=== PATIENT | male | born 1980 | race Caucasian/White ===

== ENCOUNTER 2023-12-17 09:30 | Emergency (ER) | payer OTHER ==
[2023-12-17] MEDS ORDERED: LORazepam 2 MG/ML INJ IV PRN ×2 (09:48)
--- NOTE | 2023-12-17 09:53 | ED ---
Alcohol HPI - General Chief Complaint: Alcohol Stated Complaint: Withdrawal Time Seen by Provider: 12/17/23 09:32 Source: patient, EMS Mode of arrival: EMS Limitations: no limitations - History of Present Illness Initial Comments: This patient is a 43-year-old man sent here from [facility] to have evaluation for possible jaundice. The patient states he is there to stop drinking. He was drinking approximately 1/5 of alcohol per day. His last drink was on morning. He states that he does feel a little bit shaky. He denies any trauma. No pain. Currently no nausea or vomiting. Patient has had seizures previously MD Complaint: medical clearance for detox facility Time Since Last Drink: 48 -: hour(s) Previous Visits for Alcohol Intoxication?: No Recent Trauma: No Associated Symptoms: tremors Chronic Alcohol Use: Yes - Related Data Allergies Allergy/AdvReac Type Severity Reaction Status Date / Time No Known Allergies Allergy Verified 12/18/23 01:46 Review of Systems ROS Statement: Those systems with pertinent positive or pertinent negative responses have been documented in the HPI. ROS Other: All systems not noted in ROS Statement are negative. Constitutional: Denies: fever, chills, weakness Eyes: Denies: vision change Respiratory: Denies: cough, dyspnea Cardiovascular: Denies: chest pain, palpitations, edema Gastrointestinal: Denies: abdominal pain, nausea, vomiting, diarrhea Genitourinary: Denies: dysuria, hematuria Musculoskeletal: Denies: back pain Skin: Denies: rash Neurological: Denies: headache, weakness Psychiatric: Reports: anxiety Past Medical History Past Medical History: Liver Disease Additional Past Medical History / Comment(s): fatty liver History of Any Multi-Drug Resistant Organisms: None Reported Past Surgical History: No Surgical Hx Reported Smoking Status: Current every day smoker Past Alcohol Use History: Abuse, Daily, Heavy Past Drug Use History: None Reported General Exam Limitations: no limitations General appearance: alert, in no apparent distress Head exam: Present: atraumatic, normocephalic Eye exam: Present: normal appearance. Absent: scleral icterus, conjunctival injection ENT exam: Present: mucous membranes dry Neck exam: Present: normal inspection Respiratory exam: Present: normal lung sounds bilaterally. Absent: respiratory distress, wheezes, rales, rhonchi, stridor, accessory muscle use Cardiovascular Exam: Present: regular rate, normal rhythm, normal heart sounds. Absent: systolic murmur, diastolic murmur, rubs, gallop GI/Abdominal exam: Present: soft. Absent: distended, tenderness, guarding, rebound, rigid, mass Extremities exam: Present: normal inspection, normal capillary refill. Absent: pedal edema, calf tenderness Back exam: Present: normal inspection. Absent: CVA tenderness (R), CVA tenderness (L) Neurological exam: Present: alert Skin exam: Present: warm, dry, intact, normal color. Absent: rash Course Vital Signs 12/17/23 12/17/23 09:31 13:54 Temperature 98 F 98.9 F Pulse Rate 94 87 Respiratory 22 16 Rate Blood Pressure 104/83 108/69 O2 Sat by Pulse 97 97 Oximetry Medical Decision Making - Medical Decision Making Was pt. sent in by a medical professional or institution (, PA, HAND WOVEN CARPET AND RUG MENDER, urgent care, hospital, or [facility]...) When possible be specific @ -Yes patient sent to have evaluation from the rehab center Did you speak to anyone other than the patient for history (EMS, parent, family, police, friend...)? What history was obtained from this source @ -[No] Did you review nursing and triage notes (agree or disagree)? Why? @ -[I reviewed and agree with nursing and triage notes] Were old charts reviewed (outside hosp., previous admission, EMS record, old EKG, old radiological studies, urgent care reports/EKG's, [facility] records)? Report findings @ -[Transfer records were reviewed] Differential Diagnosis (chest pain, altered mental status, abdominal pain women, abdominal pain men, vaginal bleeding, weakness, fever, dyspnea, syncope, headache, dizziness, GI bleed, back pain, seizure, CVA, palpatations, mental health, musculoskeletal)? @ -[Differential Mental Health Depression, anxiety, bipolar, psychosis, schizophrenia, borderline personality, situational depression, adjustment disorder, behavioral disorder, brain tumor, malingering, substance abuse, encephalopathy, medication reaction, dementia, hypothyroidism, degenerative neurologic disorder, lupus.... This is not meant to be all-inclusive list EKG interpreted by me (3pts min.). @ -[As above] X-rays interpreted by me (1pt min.). @ -[None done] CT interpreted by me (1pt min.). @ -[None done] U/S interpreted by me (1pt. min.). @ -[None done] What testing was considered but not performed or refused? (CT, X-rays, U/S, labs)? Why? @ -[None] What meds were considered but not given or refused? Why? @ -[None] Did you discuss the management of the patient with other professionals (professionals i.e. Dr., PA, HAND WOV[employer] R[employer] MENDER, lab, RT, psych nurse, healthcare social worker, mental retardation aide, teacher, structural engineering drafting officer, immigration case manager)? Give summary @ -[No] Was smoking cessation discussed for >3mins.? @ -[No] Was critical care preformed (if so, how long)? @ -[No] Were there social determinants of health that impacted care today? How? (Homelessness, low income, unemployed, alcoholism, drug addiction, transportation, low edu. Level, literacy, decrease access to med. care, halfway, rehab)? @ -[No] Was there de-escalation of care discussed even if they declined (Discuss DNR or withdrawal of care, Hospice)? DNR status @ -[No] What co-morbidities impacted this encounter? (DM, HTN, Smoking, COPD, CAD, Cancer, CVA, ARF, Chemo, Hep., AIDS, mental health diagnosis, sleep apnea, morbid obesity)? @ -[None] Was patient admitted / discharged? Hospital course, mention meds given and route, prescriptions, significant lab abnormalities, going to OR and other pertinent info. @ -[Patient is 43-year-old man sent from the rehab center to have evaluation for jaundice. After the evaluation, the patient does appear to have an element of alcoholic hepatitis. He also is manifesting symptoms of alcohol withdrawal. The symptoms are improved with Ativan. At this point the patient does appear stable to have continued outpatient treatment for his condition. Discussed stefany ropriate further care and follow-up as well as return parameters. Undiagnosed new problem with uncertain prognosis? @ -[No] Drug Therapy requiring intensive monitoring for toxicity (Heparin, Nitro, I nsulin, Cardizem)? @ -[No] Were any procedures done? @ -[No] Diagnosis/symptom? @ -[Acute alcohol withdrawal Acute on chronic alcoholic hepatitis Acute, or Chronic, or Acute on Chronic? @ -[Acute Uncomplicated (without systemic symptoms) or Complicated (systemic symptoms)? @ -[Uncomplicated Side effects of treatment? @ -[No] Exacerbation, Progression, or Severe Exacerbation? @ -[No] Poses a threat to life or bodily function? How? (Chest pain, USA, SC, pneumonia, PE, COPD, DKA, ARF, appy, cholecystitis, CVA, Diverticulitis, Homicidal, Suicidal, threat to staff... and all critical care pts) @ -[Yes there is low risk of threat to life but patient is at dedicated rehabilitation facility and they will return him here if need be - Lab Data Result diagrams: 12/17/23 10:12/17/23 10:01 Lab Results 12/17/23 12/17/23 12/17/23 Range/Units 10: 10: 12:31 WBC 6.2 (3.8-10.6) k/uL RBC 2.84 L (4.30-5.90) m/uL Hgb 10.5 L (13.0-17.5) gm/dL Hct 31.8 L (39.0-53.0) % MCV 112.1 H (80.0-100.0) fL MCH 36.9 H (25.0-35.0) pg MCHC 32.9 (31.0-37.0) g/dL RDW 18.3 H (11.5-15.5) % Plt Count 380 (150-450) k/uL MPV 8.1 Neutrophils % 72 % Lymphocytes % 21 % Monocytes % 3 % Eosinophils % 2 % Basophils % 1 % Neutrophils # 4.4 (1.3-7.7) k/uL Lymphocytes # 1.3 (1.0-4.8) k/uL Monocytes # 0.2 (0-1.0) k/uL Eosinophils # 0.1 (0-0.7) k/uL Basophils # 0.1 (0-0.2) k/uL Manual Slide Review Performed Anisocytosis Slight Macrocytosis Marked A Stomatocytes Present Sodium 137 (137-145) mmol/L Potassium 4.9 (3.5-5.1) mmol/L Chloride 109 H (98-107) mmol/L Carbon Dioxide 23 (22-30) mmol/L Anion Gap 5 mmol/L BUN 7 L (9-20) mg/dL Creatinine 0.39 L (0.66-1.25) mg/dL Est GFR (CKD-EPI)AfAm >90 (>60 ml/min/1.73 sqM) Est GFR (CKD-EPI)NonAf >90 (>60 ml/min/1.73 sqM) Glucose 71 L (74-99) mg/dL Calcium 8.1 L (8.4-10.2) mg/dL Magnesium 1.3 L (1.6-2.3) mg/dL Total Bilirubin 1.9 H (0.2-1.3) mg/dL AST 318 H (17-59) U/L ALT 152 H (4-49) U/L Alkaline Phosphatase 211 H (38-126) U/L Ammonia 14 (<30) umol/L Total Protein 5.9 L (6.3-8.2) g/dL Albumin 3.1 L (3.5-5.0) g/dL Serum Alcohol <10 mg/dL Disposition Clinical Impression: Alcoholic hepatitis, Alcohol withdrawal syndrome Disposition: HOME SELF-CARE Condition: Good Instructions (If sedation given, give patient instructions): Alcohol Withdrawal (ED) Is patient prescribed a controlled substance at d/c from ED?: No Referrals: None,Stated [Primary Care Provider] - 1-2 days
[2023-12-17] MEDS: SODIUM CHLORIDE 0.9% 1,000 ML IV ONE (10:04)
[2023-12-17] MEDS: LORazepam 2 MG/ML INJ IV STA ×2 (10:04→15:11)
[2023-12-17 10:40] LABS: ALT 152 U/L (4-49); African American GFR (CKD) >90 (>60 ml/min/1.73 sqM); Alcohol <10 mg/dL; Anion Gap 5 mmol/L; Blood Urea Nitrogen 7 mg/dL (9-20); Calcium 8.1 mg/dL (8.4-10.2); Carbon Dioxide 23 mmol/L (22-30); Chloride 109 mmol/L (98-107); Glucose 71 mg/dL (74-99); Non-African American GFR(CKD) >90 (>60 ml/min/1.73 sqM); Sodium 137 mmol/L (137-145); Total Bilirubin 1.9 mg/dL (0.2-1.3)
[2023-12-17 10:57] LABS: Anisocytosis Slight; Basophils # (A) 0.1 k/uL (0-0.2); Basophils % (A) 1 %; Eosinophils # (A) 0.1 k/uL (0-0.7); Eosinophils % (A) 2 %; HCT 31.8 % (39.0-53.0); HGB 10.5 gm/dL (13.0-17.5); Lymphocytes # (A) 1.3 k/uL (1.0-4.8); Lymphocytes % (A) 21 %; MCH 36.9 pg (25.0-35.0); MCHC 32.9 g/dL (31.0-37.0); MCV 112.1 fL (80.0-100.0); Macrocytosis Marked; Mean Platelet Volume 8.1; Monocytes # (A) 0.2 k/uL (0-1.0); Monocytes % (A) 3 %; Neutrophils # (A) 4.4 k/uL (1.3-7.7); Neutrophils % (A) 72 %; Platelet Count 380 k/uL (150-450); RBC 2.84 m/uL (4.30-5.90); RDW 18.3 % (11.5-15.5); WBC 6.2 k/uL (3.8-10.6)
[2023-12-17 11:00] LABS: AST 318 U/L (17-59); Alkaline Phosphatase 211 U/L (38-126); Magnesium 1.3 mg/dL (1.6-2.3); Potassium 4.9 mmol/L (3.5-5.1); Total Protein 5.9 g/dL (6.3-8.2)
[2023-12-17 11:01] LABS: Albumin 3.1 g/dL (3.5-5.0)
[2023-12-17 11:33] LABS: Stomatocytes Present
[2023-12-17] MEDS: MAGNESIUM SULFATE-D5W PMX 1 GM in DEXTROSE/WATER 1 100ML.BAG IVPB ONE (13:29)
[2023-12-17] MEDS: LORazepam 2 MG/ML INJ IV PRN (13:31)
[2023-12-17 14:28] VITALS: BP 108/69; PULSE 87; RESP 16; TEMP 98.9
[2023-12-18] MEDS ORDERED: THIAMINE 100 MG TAB PO SCH (09:00)
== END 2023-12-17 15:11 | disposition home or self-care (01) ==
LOC: EC 09:30
DX: K70.10 Alcoholic hepatitis without ascites (principal); F10.239 Alcohol dependence with withdrawal, unspecified; F17.200 Nicotine dependence, unspecified, uncomplicated
CPT/HCPCS: 36415; 80053; 82140; 83735; 85025; 99284; 96365; 96375; 96361; G0480; J2060; J3475; 80320

== ENCOUNTER 2023-12-18 01:44 | Emergency (ER) | payer OTHER ==
[2023-12-18] MEDS: SODIUM CHLORIDE 0.9% 1,000 ML IV STA (02:22)
[2023-12-18 02:38] LABS: Anisocytosis Slight; Basophils # (A) 0.1 k/uL (0-0.2); Basophils % (A) 2 %; Eosinophils # (A) 0.1 k/uL (0-0.7); Eosinophils % (A) 1 %; HCT 34.5 % (39.0-53.0); Lymphocytes # (A) 0.9 k/uL (1.0-4.8); Lymphocytes % (A) 14 %; MCH 36.3 pg (25.0-35.0); MCHC 31.8 g/dL (31.0-37.0); MCV 114.3 fL (80.0-100.0); Macrocytosis Marked; Mean Platelet Volume 7.8; Monocytes # (A) 0.1 k/uL (0-1.0); Monocytes % (A) 2 %; Neutrophils # (A) 5.2 k/uL (1.3-7.7); Neutrophils % (A) 80 %; Platelet Count 382 k/uL (150-450); RBC 3.02 m/uL (4.30-5.90); RDW 18.3 % (11.5-15.5); WBC 6.5 k/uL (3.8-10.6)
[2023-12-18 02:41] LABS: Appearance,Urine Clear (Clear); Bilirubin,Urine Negative (Negative); Blood,Urine Negative (Negative); Color,Urine Yellow; Glucose,Urine (UA) Negative (Negative); Ketones,Urine Negative (Negative); Leukocyte Esterase,Urine Negative (Negative); Nitrite,Urine Negative (Negative); PH, Urine 7.5 (5.0-8.0); Protein,Urine Negative (Negative); Specific Gravity,Urine 1.015 (1.001-1.035)
[2023-12-18 02:56] LABS: ALT 149 U/L (4-49); AST 265 U/L (17-59); African American GFR (CKD) >90 (>60 ml/min/1.73 sqM); Albumin 3.4 g/dL (3.5-5.0); Alcohol <10 mg/dL; Alkaline Phosphatase 236 U/L (38-126); Anion Gap 5 mmol/L; Blood Urea Nitrogen 6 mg/dL (9-20); Calcium 8.5 mg/dL (8.4-10.2); Carbon Dioxide 25 mmol/L (22-30); Chloride 107 mmol/L (98-107); Glucose 99 mg/dL (74-99); Non-African American GFR(CKD) >90 (>60 ml/min/1.73 sqM); Potassium 4.4 mmol/L (3.5-5.1); Sodium 137 mmol/L (137-145); Total Bilirubin 1.9 mg/dL (0.2-1.3); Total Protein 6.2 g/dL (6.3-8.2)
[2023-12-18] MEDS: LORazepam 2 MG/ML INJ IV STA (03:50)
[2023-12-18] MEDS: LORazepam 1 MG TAB PO STA (03:52)
--- NOTE | 2023-12-18 04:11 | ED ---
Abdominal Pain HPI - General Chief Complaint: Abdominal Pain Stated Complaint: Abd pain Time Seen by Provider: 12/18/23 01:46 Source: patient, EMS Mode of arrival: EMS - History of Present Illness Initial Comments: 43-year-old male presenting to the ED as instructed by Micah Rosenberg. Patient initially when he came here noted some abdominal pain however shortly after having a bowel movement that has all resolved. Patient is at [facility] due to alcohol withdrawal. His last drink was 3 days ago. Does report some shakiness and anxiety. Otherwise at this time patient has no complaints and is unsure why he is here. Currently denies chest pain, shortness of breath. No ab dominal pain. No changes in bowel or bladder habits. No fever or chills. No other complaints at this time. - Related Data Allergies Allergy/AdvReac Type Severity Reaction Status Date / Time No Known Allergies Allergy Verified 12/18/23 01:46 Review of Systems ROS Statement: Those systems with pertinent positive or pertinent negative responses have been documented in the HPI. ROS Other: All systems not noted in ROS Statement are negative. Past Medical History Past Medical History: Liver Disease Additional Past Medical History / Comment(s): fatty liver History of Any Multi-Drug Resistant Organisms: None Reported Past Surgical History: No Surgical Hx Reported Smoking Status: Current every day smoker Past Alcohol Use History: Abuse, Daily, Heavy Past Drug Use History: None Reported General Exam General appearance: alert, in no apparent distress Eye exam: Present: PERRL, EOMI Neck exam: Present: normal inspection Respiratory exam: Present: normal lung sounds bilaterally Cardiovascular Exam: Present: regular rate GI/Abdominal exam: Present: soft Extremities exam: Present: other (Minimal tremor with arms extended) Neurological exam: Present: alert, oriented X3 Skin exam: Present: warm, dry Course Vital Signs 12/18/23 12/18/23 01:46 03:53 Temperature 97.0 F L 97.8 F Pulse Rate 89 94 Respiratory 20 13 Rate Blood Pressure 134/91 115/80 O2 Sat by Pulse 95 100 Oximetry Medical Decision Making - Medical Decision Making Was pt. sent in by a medical professional or institution (, PA, AVIONICS ELECTRONICS TECHNICIAN, urgent care, hospital, or [facility]...) When possible be specific @ -[facility] Did you speak to anyone other than the patient for history (EMS, parent, family, police, friend...)? What history was obtained from this source @ -No Did you review nursing and triage notes (agree or disagree)? Why? @ -I reviewed and agree with nursing and triage notes Were old charts reviewed (outside hosp., previous admission, EMS record, old EKG, old radiological studies, urgent care reports/EKG's, [facility] records)? Report findings @ -Reviewed prior visit. Patient was just here yesterday. Differential Diagnosis (chest pain, altered mental status, abdominal pain women, abdominal pain men, vaginal bleeding, weakness, fever, dyspnea, syncope, headache, dizziness, GI bleed, back pain, seizure, CVA, palpatations, mental health, musculoskeletal)? @ -Differential Chest Pain: Stable Angina, Unstable Angina, STEMI, NSTEMI Aortic Dissection, Pneumothorax, Musculoskeletal, Esophageal Spasm GERD, Cholecystitis, Pancreatitis, Zoster, this is not meant to be an all-inclusive list. Differential Abdominal Pain Men: Appendicitis, cholecystitis, diverticulosis, ischemic bowel, pancreatitis, hepatitis, UTI, gastroenteritis, AAA, incarcerated hernia, bowel obstruction, constipation, inflammatory bowel, hepatitis, peptic ulcer disease, splenic infarction, perforated viscus, testicular torsion, this is not meant to be an all-inclusive list EKG interpreted by me (3pts min.). @ -EKG interpreted me showing a sinus rhythm at [address] or T wave changes. NC 157, QRS 96, QT/QTc 414/442. X-rays interpreted by me (1pt min.). @ -None done CT interpreted by me (1pt min.). @ -None done U/S interpreted by me (1pt. min.). @ -None done What testing was considered but not performed or refused? (CT, X-rays, U/S, l abs)? Why? @ -None What meds were considered but not given or refused? Why? @ -None Did you discuss the management of the patient with other professionals (professionals i.e. , PA, AVIONICS ELECTRONICS TECHNICIAN, lab, RT, psych nurse, social services designee, dough molder hand, teacher, welfare officer, correctional case records supervisor)? Give summary @ -No Was smoking cessation discussed for >3mins.? @ -No Was critical care preformed (if so, how long)? @ -No Were there social determinants of health that impacted care today? How? (Homelessness, low income, unemployed, alcoholism, drug addiction, transportation, low edu. Level, literacy, decrease access to med. care, longterm, rehab)? @ -No Was there de-escalation of care discussed even if they declined (Discuss DNR or withdrawal of care, Hospice)? DNR status @ -No What co-morbidities impacted this encounter? (DM, HTN, Smoking, COPD, CAD, Cancer, CVA, ARF, Chemo, Hep., AIDS, mental health diagnosis, sleep apnea, morbid obesity)? @ -Alcohol abuse Was patient admitted / discharged? Hospital course, mention meds given and route, prescriptions, significant lab abnormalities, going to OR and other pertinent info. @ -Discharge 43-year-old male presented to the ED from [facility]. At this time patient has no complaints and is unsure why he is here. Denies chest pain, shortness of breath, abdominal pain, change in bowel or bladder habits, fever or chills. Laboratory studies reviewed. Labs including CBC, UA, serology panel, alcohol unremarkable. CMP does show transaminitis however consistent with history of alcohol abuse. EKG showed a sinus rhythm without acute findings. Patient discharged home in stable condition. Discussed return precautions with patient who verbalized agreement. Undiagnosed new problem with uncertain prognosis? @ -No Drug Therapy requiring intensive monitoring for toxicity (Heparin, Nitro, Insulin, Cardizem)? @ -No Were any procedures done? @ -No Diagnosis/symptom? @ -Sent in by [facility] for evaluation, alcohol withdrawal Acute, or Chronic, or Acute on Chronic? @ -Acute Uncomplicated (without systemic symptoms) or Complicated (systemic symptoms)? @ -Uncomplicated Side effects of treatment? @ -No Exacerbation, Progression, or Severe Exacerbation? @ -No Poses a threat to life or bodily function? How? (Chest pain, USA, PA, pneumonia, PE, COPD, DKA, ARF, appy, cholecystitis, CVA, Diverticulitis, Homicidal, Suicidal, threat to staff... and all critical care pts) @ -No - Lab Data Result diagrams: 12/18/23 02:27 12/18/23 02:27 Lab Results 12/18/23 12/18/23 12/18/23 Range/Units 02:27 02:27 02:27 WBC 6.5 (3.8-10.6) k/uL RBC 3.02 L (4.30-5.90) m/uL Hgb 11.0 L (13.0-17.5) gm/dL Hct 34.5 L (39.0-53.0) % MCV 114.3 H (80.0-100.0) fL MCH 36.3 H (25.0-35.0) pg MCHC 31.8 (31.0-37.0) g/dL RDW 18.3 H (11.5-15.5) % Plt Count 382 (150-450) k/uL MPV 7.8 Neutrophils % 80 % Lymphocytes % 14 % Monocytes % 2 % Eosinophils % 1 % Basophils % 2 % Neutrophils # 5.2 (1.3-7.7) k/uL Lymphocytes # 0.9 L (1.0-4.8) k/uL Monocytes # 0.1 (0-1.0) k/uL Eosinophils # 0.1 (0-0.7) k/uL Basophils # 0.1 (0-0.2) k/uL Anisocytosis Slight Macrocytosis Marked A Sodium 137 (137-145) mmol/L Potassium 4.4 (3.5-5.1) mmol/L Chloride 107 (98-107) mmol/L Carbon Dioxide 25 (22-30) mmol/L Anion Gap 5 mmol/L BUN 6 L (9-20) mg/dL Creatinine 0.40 L (0.66-1.25) mg/dL Est GFR (CKD-EPI)AfAm >90 (>60 ml/min/1.73 sqM) Est GFR (CKD-EPI)NonAf >90 (>60 ml/min/1.73 sqM) Glucose 99 (74-99) mg/dL Calcium 8.5 (8.4-10.2) mg/dL Total Bilirubin 1.9 H (0.2-1.3) mg/dL AST 265 H (17-59) U/L ALT 149 H (4-49) U/L Alkaline Phosphatase 236 H (38-126) U/L Total Protein 6.2 L (6.3-8.2) g/dL Albumin 3.4 L (3.5-5.0) g/dL Urine Color Yellow Urine Appearance Clear (Clear) Urine pH 7.5 (5.0-8.0) Ur Specific [place] 1.015 (1.001-1.035) Urine Protein Negative (Negative) Urine Glucose (UA) Negative (Negative) Urine Ketones Negative (Negative) Urine Blood Negative (Negative) Urine Nitrite Negative (Negative) Urine Bilirubin Negative (Negative) Urine Urobilinogen 4.0 (<2.0) mg/dL Ur Leukocyte Esterase Negative (Negative) Serum Alcohol <10 mg/dL Influenza Type A (PCR) (Not Detectd) Influenza Type B (PCR) (Not Detectd) RSV (PCR) (Not Detectd) SARS-CoV-2 (PCR) (Not Detectd) 12/18/23 Range/Units 02:27 WBC (3.8-10.6) k/uL RBC (4.30-5.90) m/uL Hgb (13.0-17.5) gm/dL Hct (39.0-53.0) % MCV (80.0-100.0) fL MCH (25.0-35.0) pg MCHC (31.0-37.0) g/dL RDW (11.5-15.5) % Plt Count (150-450) k/uL MPV Neutrophils % % Lymphocytes % % Monocytes % % Eosinophils % % Basophils % % Neutrophils # (1.3-7.7) k/uL Lymphocytes # (1.0-4.8) k/uL Monocytes # (0-1.0) k/uL Eosinophils # (0-0.7) k/uL Basophils # (0-0.2) k/uL Anisocytosis Macrocytosis Sodium (137-145) mmol/L Potassium (3.5-5.1) mmol/L Chloride (98-107) mmol/L Carbon Dioxide (22-30) mmol/L Anion Gap mmol/L BUN (9-20) mg/dL Creatinine (0.66-1.25) mg/dL Est GFR (CKD-EPI)AfAm (>60 ml/min/1.73 sqM) Est GFR (CKD-EPI)NonAf (>60 ml/min/1.73 sqM) Glucose (74-99) mg/dL Calcium (8.4-10.2) mg/dL Total Bilirubin (0.2-1.3) mg/dL AST (17-59) U/L ALT (4-49) U/L Alkaline Phosphatase (38-126) U/L Total Protein (6.3-8.2) g/dL Albumin (3.5-5.0) g/dL Urine Color Urine Appearance (Clear) Urine pH (5.0-8.0) Ur Specific [place] (1.001-1.035) Urine Protein (Negative) Urine Glucose (UA) (Negative) Urine Ketones (Negative) Urine Blood (Negative) Urine Nitrite (Negative) Urine Bilirubin (Negative) Urine Urobilinogen (<2.0) mg/dL Ur Leukocyte Esterase (Negative) Serum Alcohol mg/dL Influenza Type A (PCR) Not Detected (Not Detectd) Influenza Type B (PCR) Not Detected (Not Detectd) RSV (PCR) Not Detected (Not Detectd) SARS-CoV-2 (PCR) Not Detected (Not Detectd) Disposition Clinical Impression: Alcohol withdrawal Disposition: HOME SELF-CARE Condition: Good Additional Instructions: Please return to the Emergency Department if symptoms worsen or any other concerns. Please follow-up with your primary care provider. Is patient prescribed a controlled substance at d/c from ED?: No Referrals: None,Stated [Primary Care Provider] - 1-2 days Time of Disposition: 04:15
[2023-12-18 04:16] VITALS: BP 115/80; PULSE 94; RESP 13; TEMP 97.8
== END 2023-12-18 04:44 | disposition home or self-care (01) ==
LOC: EC 01:44
DX: F10.139 Alcohol abuse with withdrawal, unspecified (principal); F17.200 Nicotine dependence, unspecified, uncomplicated; Z11.52 Encounter for screening for COVID-19; Y90.0 Blood alcohol level of less than 20 mg/100 ml
CPT/HCPCS: 36415; 80053; 80320; 81003; 85025; 87636; 93005; 96360; 99284